=== PATIENT | female | born 1945 | race Caucasian/White ===

== ENCOUNTER 2016-09-28 13:22 | Emergency (ER) | payer OTHER ==
[~2016-09-28] VITALS: Ht 162.6 cm; Wt 80.6 kg
[~2016-09-28 13:22] MED LIST: AMBIEN10 MG PO; BISAC-EVAC10 MG PR; BUPROPION HCL75 MG PO; CIPRO500 MG PO; COL-RITE100 M1 PO; CYCLOBENZAPRINE5 MG PO; DIAZEPAM2 MG PO; DOCUSATE SODIU100 MG PO; ELAVIL25 MG PO; FLEXERIL5 MG PO; HYDROCODON-ACE1 EAC7 PO; HYDROCODON-ACE1 EAC9 PO; HYDROMORPHONE HC2 MG PO; INDERAL20 MG PO; LEXAPRO20 MG PO; LIPITOR20 MG PO; METHOCARBAMOL500 MG PO; METRONIDAZOLE500 MG PO; MILK OF MAGNESI10 ML PO; MORPHINE SULFAT15 M1 PO; PROLIA60 MG/1 ML SC; PROMETHAZINE12.5 M1 PO; PROTONIX40 MG PO; SENNA PLUS TAB1 EACH PO; TYLENOL PM1 CAPLET PO; TYLENOL REGULA325 MG PO; VIACTIV SOFT C1 EACH PO; ZOFRAN ODT4 MG PO; ZOLPIDEM TARTRA10 MG PO; ZOLPIDEM TARTRAT5 MG PO
[2016-09-28 14:32] LABS: MCH 24.9 PG (29.0-34.0); MCHC 30.6 G/DL (30.0-36.0); PLATELET COUNT 295 K/uL (156-360); RBC DIS.WIDTH-CV 15.4 % (11.8-14.6); RBC DIS.WIDTH-SD 46.3 % (39-53); RED BLOOD COUNT 4.29 M/uL (3.80-5.20); WHITE BLOOD COUNT 6.2 K/uL (4.1-10.2)
[2016-09-28 14:36] LABS: MCV 81.6 FL (83-99)
[2016-09-28 14:39] LABS: CHLORIDE 103 mEq/L (99-109); POTASSIUM 4.1 mEq/L (3.7-5.4); SODIUM 137 mEq/L (136-147)
[2016-09-28 14:41] LABS: GLUCOSE 88 mg/dL (70-99)
[2016-09-28 14:42] LABS: ANION GAP 12 MEQ/L (2-14)
[2016-09-28 14:45] LABS: GFR ESTIMATE (CALCULATED) > 59 mL/min/
[2016-09-28 14:46] LABS: UREA NITROGEN (BUN) 12 mg/dL (9-23)
[2016-09-28 14:51] LABS: TROP-I INTERPRETATION NEGATIVE; TROPONIN-I < 0.01 ng/mL (0.0-0.30)
[2016-09-28 18:41] VITALS: BP 103/65
== END 2016-09-28 18:43 | disposition home or self-care (01) ==
LOC: EME 13:22
PROVIDERS: Emergency Medicine
DX: R29.6 Repeated falls (principal); R53.1 Weakness; Z98.890 Other specified postprocedural states; Z91.81 History of falling; M85.88 Other specified disorders of bone density and structure, other site; I10 Essential (primary) hypertension; K44.9 Diaphragmatic hernia without obstruction or gangrene; Z87.891 Personal history of nicotine dependence
CPT/HCPCS: 71020; 72070; 80048; 84484; 85027; 93005; 99281; 99285; J7030